=== PATIENT | male | born 1970 | race Caucasian/White ===

== ENCOUNTER 2021-03-07 14:43 | Inpatient (IN) | payer OTHER ==
[~2021-03-07] VITALS: Ht 182.9 cm; Wt 142.7 kg
[2021-03-07 15:42] LABS: BASOPHIL 0.2 % (0-2); EOSINOPHIL 0 % (0-5); HGB 15.1 g/dl (13.2-18.0); LYMPHOCYTE 5.8 % (15-48); MCH 31.7 pg (25.0-31.0); MCHC 34.3 g/dL (32.0-36.0); MCV 92.2 fL (78.0-100.0); MONOCYTE 5.3 % (0-12); MPV 9.9 fL (6.0-9.5); NEUTROPHIL 87.3 % (41-80); NRBC 0.3; PLT 182 K/uL (150-400); RBC 4.77 M/uL (4.70-6.00); RDW 12.2 % (11.5-14.0); WBC 6.3 K/uL (4.0-10.5)
[2021-03-07 16:03] LABS: ALKALINE PHOSHATASE 61 U/L (46-116); ALT 60 U/L (16-63); AST 76 U/L (15-37); BILIRUBIN - TOTAL 0.5 mg/dL (0.2-1.0); BUN 29 mg/dL (7-18); BUN/CREAT RATIO (CALC) 25.4 RATIO; C-REACTIVE PROTEIN >18.00 mg/dL (<=0.90); CHLORIDE 95 mmol/L (98-107); CO2 (BICARBONATE) 22 mmol/L (21-32); CREATININE 1.14 mg/dL (0.67-1.17); GLOBULIN (CALCULATION) 4.8 g/dL; POTASSIUM 4.6 mmol/L (3.5-5.1); TOTAL PROTEIN 7.8 g/dL (6.4-8.2)
[2021-03-07 16:06] LABS: GLUCOSE 459 mg/dL (74-106)
[2021-03-07 16:09] LABS: LACTIC ACID 3.5 mmol/L (0.4-1.9)
[2021-03-07 19:57] LABS: INR 1.06 (0.9-1.2); PROTHROMBIN TIME 13.2 SECONDS (11.8-13.4)
[2021-03-07 19:58] LABS: PTT 38.8 SECONDS (24.4-34.7)
[2021-03-07 21:35] LABS: FLU B NEGATIVE B (NEGATIVE B)
[2021-03-08] MEDS ORDERED: MONTELUKAST SOD10 MG PO (00:53)
[2021-03-08] MEDS ORDERED: TRELEGY ELLIPT1 EACH INH (00:53)
[2021-03-08] MEDS ORDERED: QUETIAPINE FUM200 MG PO (00:55)
[2021-03-08] MEDS ORDERED: PANTOPRAZOLE SO40 MG PO (00:57)
[2021-03-08 02:13] LABS: LACTIC ACID 2.4 mmol/L (0.4-1.9)
[2021-03-08 06:42] LABS: BASOPHIL 0.2 % (0-2); EOSINOPHIL 0 % (0-5); HCT 41.1 % (42.0-52.0); LYMPHOCYTE 11.9 % (15-48); MCH 32.1 pg (25.0-31.0); MCHC 34.1 g/dL (32.0-36.0); MCV 94.3 fL (78.0-100.0); MONOCYTE 4.2 % (0-12); MPV 9.7 fL (6.0-9.5); NEUTROPHIL 82.8 % (41-80); NRBC 0; PLT 191 K/uL (150-400); RBC 4.36 M/uL (4.70-6.00); RDW 12.2 % (11.5-14.0); WBC 5.3 K/uL (4.0-10.5)
[2021-03-08 07:51] LABS: ALBUMIN 2.6 g/dL (3.4-5.0); BILIRUBIN - TOTAL 0.5 mg/dL (0.2-1.0); BUN/CREAT RATIO (CALC) 28.6 RATIO; CREATININE 0.77 mg/dL (0.67-1.17); GLOBULIN (CALCULATION) 4.5 g/dL; POTASSIUM 4.5 mmol/L (3.5-5.1); TOTAL PROTEIN 7.1 g/dL (6.4-8.2)
[2021-03-09 05:47] LABS: HCT 40.7 % (42.0-52.0); MCH 32.5 pg (25.0-31.0); MCHC 34.4 g/dL (32.0-36.0); MCV 94.4 fL (78.0-100.0); MPV 9.6 fL (6.0-9.5); RBC 4.31 M/uL (4.70-6.00); RDW 12.3 % (11.5-14.0)
[2021-03-09 05:50] LABS: BUN/CREAT RATIO (CALC) 36.4 RATIO; CREATININE 0.66 mg/dL (0.67-1.17); POTASSIUM 4.2 mmol/L (3.5-5.1)
[2021-03-09 05:56] LABS: WBC 10.9 K/uL (4.0-10.5)
[2021-03-10 05:40] LABS: HCT 39.4 % (42.0-52.0); HGB 13.6 g/dl (13.2-18.0); MCH 32.5 pg (25.0-31.0); MCHC 34.5 g/dL (32.0-36.0); MPV 9.5 fL (6.0-9.5); RBC 4.19 M/uL (4.70-6.00); RDW 12.4 % (11.5-14.0); WBC 11.8 K/uL (4.0-10.5)
[2021-03-10 06:32] LABS: BUN/CREAT RATIO (CALC) 33.3 RATIO; CREATININE 0.69 mg/dL (0.67-1.17); POTASSIUM 4.1 mmol/L (3.5-5.1)
--- NOTE | 2021-03-10 20:02 | NUR ---
1700- NOTIFIED BY THAT PATIENT WAS BEING INTUBATION WAS REQUIRED. PATIENT WAS NOT MAINTAINING O2SAT AND WAS VERY LABORED,BREATHING 34 TIMES A MINUTE. 1750-ETOMIDATE 37MG WAS GIVEN 1755-VECRONIUM 12MG 1755-INTUBATED, 7.5ET, 24LIP PATIENT O2SAT WAS IN THE 60'S AND WAS NOT IMPROVING. PATIENT WAS BAGGED TO HELP IMPROVE THEY ONLY RAISED TO 80%. PATIENT WAS NOT SEDATED AND REQUIRED MORE. 1756-VECRONIUM 12MG WAS GIVEN AGAIN. PATIENT WAS NOT SEDATED AND WAS BITING THE TUBE AND TRYING TO PULL THE TUBE OUT. PER FENTANYL WAS MAXED AT 300, VERSED AT 15 AND PRECEDEX AT 1.4MCG XRAY DID NOT SHOW ANY PNEUMO OR PE. LARGE AMOUNTS OF MUCOUS WAS SUCTIONED. VENT SETTINGS: A/C R-24 TV-500 FIO2-100 P-15 CALLED AFTER SHIFT CHANGE AND UPDATED THAT PATIENT WAS INTUBATED AND IS SEDATED AT THIS TIME.
--- NOTE | 2021-03-11 03:41 | NUR ---
LATE ENTRY 2009 REPORTED TO MD CÉSAR PT O2-78% ON FIO2-100%, BREATHING OVER VENT, REPORTED CURRENT VENT SETTING TO MD, RESP AT BEDSIDE, BIS-50, REPORTED CURRENT SEDATION TO MD. RECOMMENDED INITIATING VECURONIUM. GAVE TELEPHONE ORDER FOR VECURONIUM DRIP, READBACK AND VERBALIZED 2053 NOTIFIED OF PT O2 81%, TELEPHONE ORDER FOR ABG AND DR PALACIOS CONSULTED 2108 DR. MASON EVALUATED PT AT BEDSIDE, NOTIFIED PT OF PT CRITICAL CONDITION VIA TELEPHONE. ORGAN PIPE MAKER METAL NOTIFIED 2111 DR[address] PALACIOS NOTIFIED OF PT CONDITION, CURRENT ABG, VENT SETTINGS, VITALS REPORTED. TELEPHONE ORDERS PLACED FOR VENT SETTING CHANGE(SEE ORDER) AND INITIATION OF PRONATION. REPEAT ABG. 2116 ORGAN PIPE MAKER METAL, NURSE TIN ROOFER AT BEDSIDE WITH PT FAMILY, SPOUSE INFORMED ON PT CRITICAL CONDITION. REQUESTED AUTOMOTIVE WELDER TO PERFORM LAST RIGHTS 2199 AUTOMOTIVE WELDER AT BEDSIDE WITH ORGAN PIPE MAKER METAL. 2229 PT HAS DECIDED TO CHANGE PT CODE STATUS TO DNR AT THIS TIME, STATES DOES NOT WANT TO PRONE PT AT THIS TIME. EDUCATED ON COMMERCIAL COLLECTIONS DRIVER RECOMMENDATION AND RISKS/BENEFITS OF PRONATION. DECLINES AT THIS TIME. 230 DR. LINDSEY AT BEDSIDE VIA IPAD TO SPEAK WITH CONCERNING CHANGE IN CODE STATUS WITH THIS RN AT BEDSIDE. PLACED ORDER. 2329 DR. PALACIOS NOTIFIED OF PT CURRENT PT CONDITION, REFUSAL OF PRONATION, AND REPEAT ABG. NO FURTHER ORDERS AT THIS TIME 0015 PT REPOSITIONED AND CHANGED. O2 SAT DECREASED TO 69%, RESP CALLED TO BEDSIDE. O2 MAINTAINING AT 78%. 0029 DR. PALACIOS NOTIFIED OF PT CONDITION, NO NEW ORDERS AT THIS TIME
[2021-03-11 06:17] LABS: BASOPHIL 0.2 % (0-2); EOSINOPHIL 0 % (0-5); HCT 42.1 % (42.0-52.0); HGB 13.7 g/dl (13.2-18.0); LYMPHOCYTE 2.9 % (15-48); MCH 31.8 pg (25.0-31.0); MCHC 32.5 g/dL (32.0-36.0); MCV 97.7 fL (78.0-100.0); MONOCYTE 3.5 % (0-12); NEUTROPHIL 92.2 % (41-80); NRBC 0; PLT 151 K/uL (150-400); RBC 4.31 M/uL (4.70-6.00); RDW 12.6 % (11.5-14.0); WBC 11.5 K/uL (4.0-10.5)
[2021-03-11 06:36] LABS: ALBUMIN 2.2 g/dL (3.4-5.0); BILIRUBIN - TOTAL 0.5 mg/dL (0.2-1.0); BUN/CREAT RATIO (CALC) 40.8 RATIO; CREATININE 0.76 mg/dL (0.67-1.17); GLOBULIN (CALCULATION) 3.9 g/dL; POTASSIUM 5.3 mmol/L (3.5-5.1); TOTAL PROTEIN 6.1 g/dL (6.4-8.2)
[2021-03-11 14:48] LABS: CREATININE 0.77 mg/dL (0.67-1.17)
--- NOTE | 2021-03-11 18:36 | NUR ---
OG TUBE WOULD NOT FLUSH, REMOVED APPEARED TO HAVE STOMACH CONTENTS IN TUBE. ATTEMPTED TO PLACE NEW TUBE WITHOUT SUCCESS
--- NOTE | 2021-03-12 05:58 | NUR ---
PT INTUBATED AND SEDATED, PO MEDS ORDERED. NO NG/OG IN PLACE AT START OF SHIFT. 03/11/2021 @ 2048 OG PLACED AND CONFIRMED X2RN'S. KUB DOES NOT SHOW PLACEMENT, TUBE REMOVED, UPON REMOVAL GASTRIC CONTENTS IN TUBE VERIFIED TUBE WAS IN CORRECT PLACE. 03/12/2021 @ [address] MERIDA, PLACEMENT CONFIRMED VIA CHEST X RAY AT 0102. RECIEVED OK TO USE AT [address] MERIDA. PT TOLERATED PROCEDURES WELL. BED IN LOWEST POSITION, CM PER ICU STAFF, VERONICA PATENT TO BSD. PT DOES NOT TOLERATE FULL TURNS AND DESATS QUICKLY AND REQUIRES A LENGTHY RECOVERY TIME. MEL-RN.
--- NOTE | 2021-03-12 06:21 | NUR ---
INFORMED OF PT'S TEMP AT FIRST ROUND VITALS AND SHE INSTRUCTED ME TO WAIT UNTIL NG/OG PLCEMENT WSA CONFIRMED BEFORE ADMINISTERING PRN TYLENOL. SEE MAR. PT TEMP HAS BEEN TRENDING DOWN OVERNIGHT AND IS NOW BEGINNING TO ELEVATE ONCE AGAIN.
[2021-03-12 06:29] LABS: BASOPHIL 0.3 % (0-2); EOSINOPHIL 0 % (0-5); HCT 42.9 % (42.0-52.0); HGB 14.2 g/dl (13.2-18.0); LYMPHOCYTE 2.8 % (15-48); MCH 32.1 pg (25.0-31.0); MCHC 33.1 g/dL (32.0-36.0); MCV 96.8 fL (78.0-100.0); MPV 10.6 fL (6.0-9.5); NRBC 0; PLT 132 K/uL (150-400); RBC 4.43 M/uL (4.70-6.00); RDW 12.6 % (11.5-14.0); WBC 10.7 K/uL (4.0-10.5)
[2021-03-12 06:50] LABS: BILIRUBIN - TOTAL 0.5 mg/dL (0.2-1.0); BUN/CREAT RATIO (CALC) 33.3 RATIO; CREATININE 0.81 mg/dL (0.67-1.17); GLOBULIN (CALCULATION) 4.2 g/dL; POTASSIUM 4.7 mmol/L (3.5-5.1); TOTAL PROTEIN 6.2 g/dL (6.4-8.2)
[2021-03-12 07:16] LABS: NEUTROPHIL 93.1 % (41-80)
[2021-03-13 06:15] LABS: BASOPHIL 0.2 % (0-2); EOSINOPHIL 0 % (0-5); HCT 44.5 % (42.0-52.0); HGB 14.1 g/dl (13.2-18.0); LYMPHOCYTE 1.9 % (15-48); MCHC 31.7 g/dL (32.0-36.0); MONOCYTE 2.2 % (0-12); MPV 10.6 fL (6.0-9.5); NRBC 0; PLT 166 K/uL (150-400); RDW 12.6 % (11.5-14.0); WBC 17.4 K/uL (4.0-10.5)
--- NOTE | 2021-03-13 06:19 | NUR ---
03/12/20211941 UPON ASSESSING PT TEMP NOTED 102.8. CONTACTED MD MOVIE EXTRA (ISIAH) INFORMED HER THAT PT HAD RECEIVED TYLENOL AT 1648 AND TEMP IS STILL ELEVATED. BLANKETS REMOVED, ICE PACKS APPLIED TO ARM PITS AND GROIN IN ATTEMPT TO LOWER PT'S TEMP. LAB OBTAINED CULTURES, 1X DOSE OF MOTRIN GIVEN 2005. 2108 TEMP 101.5, ICE PACKS CHANGED AND REAPPLIED. 2299 TEMP 100.8. 03/13/20217 PT DOES NOT TOLERATE BEING FLAT OR TURNS, BIS INCREASES TO 60-70. SEDATION INCREASED, TITRATING TO RASS AND BIS. PROPOFOL NOW AT 30 MCG/KG OR 22.3 ML/HR. 03/13/2021 0415 PT HAD LARGE LIQUID BM, WITH SEDATION CHANGES PATIENT IS ABLE TO TOLERATE LYING FLAT AND TURNING TO CLEAN/CHANGE PT. FULL LINEN CHANGE COMPLETED AT THIS TIME. ASSISTED BY RN- KOBE. TUBE FEEDS INCREASED TO GOAL RATE 35ML/HR WITH 300ML FLUSH Q4 HRS, PT TOLERATED WELL.
[2021-03-13 06:43] LABS: MCV 101.1 fL (78.0-100.0)
[2021-03-13 06:44] LABS: NEUTROPHIL 94.3 % (41-80)
[2021-03-13 07:15] LABS: BUN/CREAT RATIO (CALC) 35.4 RATIO; CREATININE 0.79 mg/dL (0.67-1.17); POTASSIUM 5.1 mmol/L (3.5-5.1)
[2021-03-14 03:46] LABS: BASOPHIL 0.1 % (0-2); EOSINOPHIL 0 % (0-5); HCT 42.6 % (42.0-52.0); HGB 13.3 g/dl (13.2-18.0); LYMPHOCYTE 1.6 % (15-48); MCH 31.8 pg (25.0-31.0); MCHC 31.2 g/dL (32.0-36.0); MCV 101.9 fL (78.0-100.0); MONOCYTE 2.4 % (0-12); MPV 10.4 fL (6.0-9.5); NRBC 0; PLT 146 K/uL (150-400); RBC 4.18 M/uL (4.70-6.00); RDW 12.7 % (11.5-14.0); WBC 15.8 K/uL (4.0-10.5)
[2021-03-14 04:07] LABS: NEUTROPHIL 94.3 % (41-80)
[2021-03-14 04:13] LABS: CREATININE 0.84 mg/dL (0.67-1.17); POTASSIUM 4.9 mmol/L (3.5-5.1)
[2021-03-15 05:17] LABS: BASOPHIL 0.1 % (0-2); EOSINOPHIL 0 % (0-5); HCT 39.2 % (42.0-52.0); HGB 12.1 g/dl (13.2-18.0); LYMPHOCYTE 1.1 % (15-48); MCH 31.9 pg (25.0-31.0); MCHC 30.9 g/dL (32.0-36.0); MCV 103.4 fL (78.0-100.0); MONOCYTE 2.6 % (0-12); MPV 10.9 fL (6.0-9.5); NEUTROPHIL 94.5 % (41-80); NRBC 0; PLT 103 K/uL (150-400); RBC 3.79 M/uL (4.70-6.00); RDW 12.6 % (11.5-14.0); WBC 17.1 K/uL (4.0-10.5)
[2021-03-15 05:42] LABS: ALBUMIN 1.9 g/dL (3.4-5.0); BILIRUBIN - TOTAL 0.6 mg/dL (0.2-1.0); BUN/CREAT RATIO (CALC) 36.1 RATIO; CREATININE 0.72 mg/dL (0.67-1.17); GLOBULIN (CALCULATION) 3.6 g/dL; POTASSIUM 4.6 mmol/L (3.5-5.1); TOTAL PROTEIN 5.5 g/dL (6.4-8.2)
--- NOTE | 2021-03-15 19:39 | NUR ---
PATIENT IS HAVING EPISODES OF DESATING. INCREASED OXYGEN FROM 75% TO 80% AND FINALLY 100%. bAGGED TO BRING SATS UP X 2. TEMPERATURE DOWN AND COOLING BLANKET OFF.
[2021-03-16 05:17] LABS: BASOPHIL 0.1 % (0-2); EOSINOPHIL 0 % (0-5); HCT 39.6 % (42.0-52.0); HGB 12.5 g/dl (13.2-18.0); LYMPHOCYTE 0.6 % (15-48); MCHC 31.6 g/dL (32.0-36.0); MCV 101.3 fL (78.0-100.0); MONOCYTE 1.3 % (0-12); MPV 11.9 fL (6.0-9.5); NRBC 0; PLT 104 K/uL (150-400); RBC 3.91 M/uL (4.70-6.00); RDW 11.9 % (11.5-14.0); WBC 19.8 K/uL (4.0-10.5)
[2021-03-16 05:24] LABS: NEUTROPHIL 95.8 % (41-80)
[2021-03-16 05:50] LABS: BUN 28 mg/dL (7-18); BUN/CREAT RATIO (CALC) 39.4 RATIO; CHLORIDE 105 mmol/L (98-107); CO2 (BICARBONATE) 34 mmol/L (21-32); CREATININE 0.71 mg/dL (0.67-1.17); GLUCOSE 313 mg/dL (74-106); POTASSIUM 4.7 mmol/L (3.5-5.1)
[2021-03-16 05:53] LABS: C-REACTIVE PROTEIN <0.20 mg/dL (<=0.90)
--- NOTE | 2021-03-16 12:23 | NUR ---
03/16/21 Mr. Mclean is intubated. He is on the waiting list for transfer to [facility].
[2021-03-16 15:59] LABS: BUN/CREAT RATIO (CALC) 37.5 RATIO; CREATININE 0.96 mg/dL (0.67-1.17); POTASSIUM 4.8 mmol/L (3.5-5.1)
--- NOTE | 2021-03-16 19:41 | NUR ---
[address] BENTLEY OF INCREASED HEART RATE AND BLOOD PRESSURE.
[2021-03-17 05:55] LABS: BASOPHIL 0.3 % (0-2); EOSINOPHIL 0.2 % (0-5); HCT 39.4 % (42.0-52.0); HGB 12.6 g/dl (13.2-18.0); LYMPHOCYTE 1.4 % (15-48); MCH 32.1 pg (25.0-31.0); MCV 100.3 fL (78.0-100.0); MONOCYTE 1.2 % (0-12); MPV 11.5 fL (6.0-9.5); NEUTROPHIL 93.1 % (41-80); NRBC 0; PLT 110 K/uL (150-400); RBC 3.93 M/uL (4.70-6.00); RDW 11.7 % (11.5-14.0)
[2021-03-17 05:59] LABS: WBC 22.7 K/uL (4.0-10.5)
[2021-03-17 06:22] LABS: CREATININE 2.45 mg/dL (0.67-1.17); POTASSIUM 4.8 mmol/L (3.5-5.1)
--- NOTE | 2021-03-17 08:07 | NUR ---
WHEN GETTING REPORT FROM CODING SPECIALIST THIS AM, PT O2 SAT WAS 65%. RESPIRATORY WAS NOTIFIED AND WITH SEVERAL ATTEMPTS OF BAGGING PT, HIS SAT ONLY GOT HIGH 81% AND QUICKLY WENT BACK DOWN IN THE 70s. AT 0807 PT WENT INTO ASYSTOLE, JEAN DEAN RN AND I WENT INTO ROOM, FOLLOWED MY DR. CORREIA. PT ASSESSED FOR PULSE AND THERE WAS NONE. CODE BLUE WAS CALLED AND COMPRESSIONS WERE STARTED. CODE TEAM CAME IN TIMELY MANNER. SEVERAL DOSES OF EPI WERE GIVEN, ALONG WITH 2 AMPS OF BICARB. WE GOT A PULSE BACK AT 0827. EPI GTT WAS STARTED. AT 0837, PULSE WAS LOST AGAIN AND CPR WAS INITIATED. AGAIN, SEVERAL DOSES OF EPI WERE GIVEN, ALONG WITH BICARB. NO PULSE WAS REGAINED. TIME OF WAS CALLED AT [address] CORREIA. DESTINEY AND MANAGER OF ALLIED HEALTH SERVICES NOTIFIED.
--- NOTE | 2021-03-17 10:28 | NUR ---
0855: RN CONTACTED DESTINEY PER PROTOCOL, SPOKE WITH ARMAND HOLLIDAY, PT RULED OUT DONOR R/T COVID + STATUS AND CURRENT ISOLATION, CASE # [id number]. 0905: RN NOTIFIED PAPER MACHINE OPERATOR AND SPOKE WITH SHAYY CASAREZ, PAPER MACHINE OPERATOR PLANS TO COME TO FACILITY, PRIMARY RN CARING FOR PT NOTIFIED NOT TO PULL ANY LINES ETC, DIRECTOR OF CONSUMER MARKETING ON UNIT ALSO NOTIFIED OF EVENTS. PRELIMINARY CERT FILLED OUT AND AOC NOTIFIED OF AND THAT PT HAD BEEN IN RESTRAINTS WITHIN THE LAST 24 HRS R/T SEDATION.
--- NOTE | 2021-03-17 10:52 | NUR ---
PT PREPPED AND LEFT WITH [facility] HOME STAFF. ALL PAPERWORK COMPLETE.
== END 2021-03-17 10:50 | disposition expired | DRG 870 ==
LOC: FER 14:43 → FICU 21:56
PROVIDERS: Allergy & Immunology; Emergency Medicine; Family Medicine; Hospitalist; ADMIT Internal Medicine
PROC: 5A09457 Assistance with Respiratory Ventilation, 24-96 Consecutive Hours, Continuous Positive Airway Pressure (ICD-10-PCS; 2021-03-07)
PROC: 8E0ZXY6 Isolation (ICD-10-PCS; 2021-03-07)
PROC: XW033E5 Introduction of Remdesivir Anti-infective into Peripheral Vein, Percutaneous Approach, New Technology Group 5 (ICD-10-PCS; 2021-03-07)
PROC: XW0DXM6 Introduction of Baricitinib into Mouth and Pharynx, External Approach, New Technology Group 6 (ICD-10-PCS; 2021-03-07)
PROC: 0BH17EZ Insertion of Endotracheal Airway into Trachea, Via Natural or Artificial Opening (ICD-10-PCS; principal; 2021-03-10)
PROC: 5A1955Z Respiratory Ventilation, Greater than 96 Consecutive Hours (ICD-10-PCS; 2021-03-10)
PROC: 02HV33Z Insertion of Infusion Device into Superior Vena Cava, Percutaneous Approach (ICD-10-PCS; 2021-03-14)
PROC: 3E033XZ Introduction of Vasopressor into Peripheral Vein, Percutaneous Approach (ICD-10-PCS; 2021-03-16)
PROC: 5A12012 Performance of Cardiac Output, Single, Manual (ICD-10-PCS; 2021-03-17)
DX: A41.9 Sepsis, unspecified organism (principal); U07.1 COVID-19; J12.82 Pneumonia due to coronavirus disease 2019; J80 Acute respiratory distress syndrome; I21.A1 Myocardial infarction type 2; J15.9 Unspecified bacterial pneumonia; J44.0 Chronic obstructive pulmonary disease with (acute) lower respiratory infection; N17.9 Acute kidney failure, unspecified; A04.72 Enterocolitis due to Clostridium difficile, not specified as recurrent; E87.0 Hyperosmolality and hypernatremia; R65.20 Severe sepsis without septic shock; E66.01 Morbid (severe) obesity due to excess calories; E11.65 Type 2 diabetes mellitus with hyperglycemia; E78.5 Hyperlipidemia, unspecified; I46.9 Cardiac arrest, cause unspecified; E87.5 Hyperkalemia; D69.6 Thrombocytopenia, unspecified; Z68.36 Body mass index [BMI] 36.0-36.9, adult; Z87.891 Personal history of nicotine dependence; Z78.1 Physical restraint status; Z82.49 Family history of ischemic heart disease and other diseases of the circulatory system; Z82.5 Family history of asthma and other chronic lower respiratory diseases
CPT/HCPCS: 36415; 36600; 71045; 71275; 74018; 80048; 80053; 80061; 80202; 82728; 82803; 82962; 83036; 83605; 83735; 83880; 83930; 84145; 84295; 84484; 85025; 85379; 85610; 85730; 86140; 87040; 87077; 87186; 87324; 87449; 87493; 87804; 87899; 93005; 94002; 94640; 94660; 94664; 96372; C9399; J0171; J0610; J0692; J1100; J1650; J1815; J1940; J2185; J2250; J2543; J2704; J2930; J3010; J3370; J3475; J7030; J7040; J7050; J7060; J8540; Q9967; U0002